=== PATIENT | female | born 1950 | race Hispanic/Latino ===

== ENCOUNTER 2019-03-16 11:18 | Day surgery (SDC) | payer OTHER, MEDICARE ==
[~2019-03-16 11:18] MED LIST: IOPIDINE OD ONE; IOPIDINE ONE; MYDRIACYL OD ONE; MYDRIACYL ONE; NEOFRIN OD ONE; NEOFRIN ONE
[2019-03-16 12:29] VITALS: BP 123/71
== END 2019-03-16 11:19 | disposition home or self-care (01) ==
LOC: OR 11:18
PROVIDERS: ATTEND Specialist
DX: H26.491 Other secondary cataract, right eye (principal); G43.909 Migraine, unspecified, not intractable, without status migrainosus; J45.909 Unspecified asthma, uncomplicated; K21.9 Gastro-esophageal reflux disease without esophagitis; Z90.49 Acquired absence of other specified parts of digestive tract; Z90.710 Acquired absence of both cervix and uterus; Z98.890 Other specified postprocedural states; Z87.891 Personal history of nicotine dependence; Z88.5 Allergy status to narcotic agent; Z98.41 Cataract extraction status, right eye; Z98.42 Cataract extraction status, left eye

== ENCOUNTER 2019-03-23 12:45 | Day surgery (SDC) | payer OTHER, MEDICARE ==
[~2019-03-23 12:45] MED LIST changes: -IOPIDINE OD ONE; -MYDRIACYL OD ONE; -NEOFRIN OD ONE
[2019-03-23] MEDS ORDERED: NEOFRIN OS ONE (13:14)
[2019-03-23] MEDS ORDERED: MYDRIACYL OS ONE (13:14)
[2019-03-23] MEDS ORDERED: IOPIDINE OS ONE ×2 (13:14→13:34)
[2019-03-23 13:16] VITALS: BP 139/74
== END 2019-03-23 13:39 | disposition home or self-care (01) ==
LOC: OR 12:45
PROVIDERS: ATTEND Specialist
DX: H26.492 Other secondary cataract, left eye (principal); J45.909 Unspecified asthma, uncomplicated; G43.909 Migraine, unspecified, not intractable, without status migrainosus; K21.9 Gastro-esophageal reflux disease without esophagitis; Z79.899 Other long term (current) drug therapy; Z87.891 Personal history of nicotine dependence; Z88.5 Allergy status to narcotic agent; Z88.8 Allergy status to other drugs, medicaments and biological substances; Z98.41 Cataract extraction status, right eye; Z98.42 Cataract extraction status, left eye; Z98.890 Other specified postprocedural states; Z90.49 Acquired absence of other specified parts of digestive tract; Z90.710 Acquired absence of both cervix and uterus